=== PATIENT | male | born 1985 | race Caucasian/White ===

== ENCOUNTER → 2025-02-05 16:07 | Outpatient (BNVA) | payer MEDICAID, SELFPAY | PROVIDERS: PCP Family Medicine; Visit Provider Family Medicine | DX: K57.92 Diverticulitis of intestine, part unspecified, without perforation or abscess without bleeding (principal) | CPT/HCPCS: 80053; 85025 ==

== ENCOUNTER → 2025-03-11 13:49 | Outpatient (BNVA) | payer MEDICAID, SELFPAY | PROVIDERS: PCP Family Medicine; Visit Provider Family Medicine | DX: E87.5 Hyperkalemia (principal) | CPT/HCPCS: 80048 ==

== ENCOUNTER 2025-05-22 13:51 | Outpatient (CLI) | payer MEDICAID, SELFPAY | END 2025-05-22 13:52 | disposition home or self-care (01) | LOC: SLEEP 13:52 | PROVIDERS: PCP Family Medicine; Visit Provider Internal Medicine Pulmonary Disease | DX: G47.10 Hypersomnia, unspecified (principal) | CPT/HCPCS: G0399 ==

== ENCOUNTER 2025-06-19 10:04 | Emergency (ER) | payer SELFPAY ==
[2025-06-19 10:15] VITALS: BP 121/81; PULSE 90; RESP 20; O2SAT 94
--- NOTE | 2025-06-19 10:16 | CT_ITS ---
WS: [id number] CT ABDOMEN PELVIS TECHNIQUE: Contrast-enhanced CT of the abdomen and pelvis with coronal and sagittal reformatted images. CLINICAL INFORMATION: abd ain COMPARISON: None. DLP: 889.[address] scans at [facility] use at least one of these dose optimization techniques: automated exposure control; mA and/or kV adjustment per patient size (includes targeted exams where dose is matched to clinical indication); or iterative reconstruction. FINDINGS: Mild thickening of the sigmoid colon with slight inflammatory stranding in the mid pelvis suspicious for mild acute diverticulitis. No drainable abscess or fluid collection. Fatty liver. Lung bases are well aerated. Normal portal vein and splenic vein. Normal spleen. Normal gallbladder. Normal GE junction. Normal pancreatic parenchymal enhancement. Celiac and SMA are patent. Adrenal glands are normal. Normal renal parenchymal enhancement. No hydronephrosis. Normal caliber abdominal aorta. Celiac and SMA are patent. Small fat-containing umbilical hernia. Appendix appears retrocecal but normal in appearance. No evidence of acute appendicitis. CT/CT abdomen pelvis w con* [id number] IMPRESSION: 1. Normal appendix in the RIGHT lower quadrant. Appendix is retrocecal. 2. No hydronephrosis in either kidney. 3. Mild thickening of the sigmoid colon with slight stranding inflammatory str anding in the mid pelvis suspicious for mild acute diverticulitis. No drainable abscess or fluid collection. 4. No other acute findings Notified Makayla Zazueta MD at 06/19/2025 11:33 AM.
[2025-06-19 10:18] VITALS: TEMP 36.8
[2025-06-19] MEDS: morphine 4 mg/mL SDV 1 mL IVP (10:29)
[2025-06-19 10:32] LABS: Hematocrit 46.4 % (37-53); Hemoglobin 15.70 g/dL (11.27-16.99); Mean Corpuscular HGB Conc 33.8 g/dL (30-55); Mean Corpuscular Hemoglobin 27.6 pg (27-33); Mean Corpuscular Volume 81.7 fl (82-101); Nucleated Red Blood Cells % 0 %; Platelet Count 211 10^3/cmm (157-399); Red Blood Count 5.68 10^6/uL (3.85-5.65); White Blood Count 6.54 10^3/uL (3.29-11.43)
[2025-06-19 10:57] LABS: Alanine Aminotransferase 32 U/L (0-41); Albumin Level 4.9 g/dL (3.5-5.2); Alkaline Phosphatase 109 U/L (40-130); Anion Gap 17.2 (5-19); Aspartate Amino Transferase 26 U/L (0-40); Blood Urea Nitrogen 16 mg/dL (6-20); Calcium 9.7 mg/dL (8.5-10.5); Carbon Dioxide 22 mmol/L (22-29); Chloride 103 mmol/L (98-107); Creatinine Clr Calc Pharmacy 111.0181; Globulin 2.8 g/dL (1.3-4.6); Glucose 99 mg/dL (65-115); Lipase 30 U/L (13-60); Osmolality Calculated 287 mOsm/kg (285-295); Potassium 4.2 mmol/L (3.5-5.1); Sodium 138 mmol/L (136-145); Total Protein 7.7 g/dL (6.6-8.7)
[2025-06-19] MEDS: iohexol 350 mg/mL 500 mL Btl (per mL) IV (10:59)
--- NOTE | 2025-06-19 11:20 | ED_ITS ---
HPI - Abdominal Pain 2 General: Chief Complaint: Abdominal Pain Stated Complaint: abd pain wrapping to back R side, light headed, Time Seen by Provider: 06/19/25 10:14 Source: patient Mode of arrival: ambulatory Limitations: no limitations History of Present Illness: 39-year-old male who states that he has been having right lower quadrant pain over the last 4 days is worsened today. States pain sharp in nature rates a 7- 10 has had some nausea denies any vomiting or fever. States has had a history of diverticulitis in the past and this feels similar. Related Data Previous Rx's ?Medication ?Instructions ?Recorded triamcinolone acetonide 0.1 % 1 applic topical BID pso riasis 02/05/25 topical cream rash #80 grams lisdexamfetamine 40 mg capsule 40 mg PO DAILY 30 days #30 caps 05/10/25 (Vyvanse) lisdexamfetamine 40 mg capsule 40 mg PO QAM 30 days #3 0 caps 05/10/25 (Vyvanse) lisdexamfetamine 40 mg capsule 40 mg PO QAM 30 days #3 0 caps 05/10/25 (Vyvanse) ciprofloxacin HCl 500 mg tablet 500 mg PO BID #14 tabs 06/19/25 (Cipro) hydrocodone 5 mg-acetaminophen 325 1 tab PO Q6H PRN pa in #14 tabs 06/19/25 mg tablet metronidazole 500 mg tablet 500 mg PO Q8H 7 days #21 t abs 06/19/25 ondansetron 4 mg disintegrating 4 mg PO Q6H PRN nausea and 06/19/25 tablet vomiting #14 tabs Allergies Allergy/AdvReac Type Severity Reaction Status Date / Time No Known Allergies Allergy Verified 05/10/25 07:47 Review of Systems 2 GI: Reports: abdominal pain PFSH ED 2 PFSH: Medical History Psoriasis Psoriasis annularis Psoriasis of scalp Eczema History of ADHD Undescended testicle Diverticulosis Mental health problem Depression Family History Father No problems noted. Mother Psoriasis Manic affective disorder with recurrent episode Melanoma Cancer Social History Smoking and tobacco/nicotine status: never used tobacco/nicotine Alcohol intake: current Alcohol intake frequency: 0-2 Drinks per Day Alcohol type: beer and hard liquor Substance/Drug Use: never Physical Exam 2 Const: COMMON NORMALS: no acute distress, patient oriented x3 and healthy appearing HENMT: COMMON NORMALS: normocephalic and atraumatic HEAD & SCALP: n ormocephalic and atraumatic Eye: COMMON NORMALS: conjunctivae normal CONJUNCTIVA: Yes conjunctivae normal Neck/C-Spine: COMMON NORMALS: full ROM and supple Chest: COMMONS NORMALS: normal inspection of the chest Resp: COMMON NORMALS: normal respiratory effort Cardio: COMMON NORMALS: regular rate, regular rhythm and No murmurs present (Cardio) RATE: regular rate RHYTHM: regular rhythm GI: COMMON NORMALS: Normal to inspection, nondistended, normoactive bowel sounds present, Soft to palpation and no masses PALPATION: Yes Soft to palpation and Yes Tenderness to palpation present (GI) Details: RLQ Extremity: COMMON NORMALS: normal to inspection and full ROM Neuro: COMMON NORMALS: patient oriented x3, moves all extremities and no focal motor deficits Psych: COMMON NORMALS: mental status grossly normal, Normal thought process present and cooperative THOUGHT PROCESS: Normal thought process present Skin: COMMON NORMALS: no rashes or lesions noted and no wounds GENERAL SKIN EXAM: no rashes or lesions noted Course 2 Vital Signs: Vital signs: Vital Signs Temperature 98.3 F 06/19/25 10:18 Pulse Rate 90 06/19/25 10:15 Respiratory Rate 20 H 06/19/25 10:15 Blood Pressure 121/81 06/19/25 10:15 Pulse Oximetry 94 06/19/25 10:15 MDM - Abdominal Pain Medical Decision Making Patient presents for abdominal pains going on for 4 days. Differential included appendicitis diverticulitis, small bowel obstruction, bowel perforation. CT was performed here and did not show any signs of appendicitis bowel obstruction or bowel observed. His abdominal exam at discharge is benign his pain has improved I did go over his blood work including his white count which showed no acute abnormalities. His CT did show diverticulitis. I went over all these findings with patient he is had no vomiting we will start him on Cipro, Flagyl, Francisco, and Zofran. He did receive morphine and Zofran and IV fluids here and felt much improved he is to follow-up with his PCP in 4 to 7 days and return to the ER if he has worsening symptoms he understands agrees to plan Medical Records I reviewed the patient's medical records. Lab Data I reviewed the patient's lab results. 06/19/25 10:20 06/19/25 10:20 Labs/Radiology: Radiology Impressions Abdomen/Pelvis CT 06/19/25 10:16 IMPRESSION: 1. Normal appendix in the RIGHT lower quadrant. Appendix is retrocecal. 2. No hydronephrosis in either kidney. 3. Mild thickening of the sigmoid colon with slight stranding inflammatory stranding in the mid pelvis suspicious for mild acute diverticulitis. No drainable abscess or fluid collection. 4. No other acute findings Notified Makayla Zazueta MD at 06/19/2025 11:33 AM. Laboratory Results WBC 6.54 10^3/uL (3.29-11.43) 06/19/25 10:20 RBC 5.68 10^6/uL (3.85-5.65) H 06/19/25 10:20 Hgb 15.70 g/dL (11.27-16.99) 06/19/25 10:20 Hct 46.4 % (37-53) 06/19/25 10:20 MCV 81.7 fl (82-101) L 06/19/25 10:20 MCH 27.6 pg (27-33) 06/19/25 10:20 MCHC 33.8 g/dL (30-55) 06/19/25 10:20 RDW 13.0 % (12.1-15.1) 06/19/25 10:20 Plt Count 211 10^3/cmm (157-399) 06/19/25 10:20 MPV 10.1 fL (7.4-10.4) 06/19/25 10:20 Neut % (Auto) 61.3 % 06/19/25 10:20 Lymph % (Auto) 31.0 % 06/19/25 10:20 Liberty % (Auto) 5.5 % 06/19/25 10:20 Eos % (Auto) 1.1 % 06/19/25 10:20 Baso % (Auto) 0.9 % 06/19/25 10:20 Neut # (Auto) 4.01 10^3/uL (1.8-7.7) 06/19/25 10:20 Lymph # (Auto) 2.0 10^3/uL (0.8-4.8) 06/19/25 10:20 Liberty # (Auto) 0.4 10^3/uL (0.2-0.9) 06/19/25 10:20 Eos # (Auto) 0.1 10^3/uL (0.0-0.8) 06/19/25 10:20 Baso # (Auto) 0.1 10^3/uL (0.0-0.1) 06/19/25 10:20 Nucleated RBC % (auto) 0 % 06/19/25 10:20 Nucleated RBCs # 0.0 /100WBC 06/19/25 10:20 Sodium 138 mmol/L (136-145) 06/19/25 10:20 Potassium 4.2 mmol/L (3.5-5.1) 06/19/25 10:20 Chloride 103 mmol/L (98-107) 06/19/25 10:20 Carbon Dioxide 22 mmol/L (22-29) 06/19/25 10:20 Anion Gap 17.2 (5-19) 06/19/25 10:20 BUN 16 mg/dL (6-20) 06/19/25 10:20 Creatinine 1.0 mg/dL (0.7-1.2) 06/19/25 10:20 GFR Calculation 83.2 mL/min (90-130) L 06/19/25 10:20 Glucose 99 mg/dL (65-115) 06/19/25 10:20 Calculated Osmolality 287 mOsm/kg (285-295) 06/19/25 10:20 Calcium 9.7 mg/dL (8.5-10.5) 06/19/25 10:20 Total Bilirubin 0.4 mg/dL (0.15-1.2) 06/19/25 10:20 AST 26 U/L (0-40) 06/19/25 10:20 ALT 32 U/L (0-41) 06/19/25 10:20 Alkaline Phosphatase 109 U/L (40-130) 06/19/25 10:20 Total Protein 7.7 g/dL (6.6-8.7) 06/19/25 10:20 Albumin 4.9 g/dL (3.5-5.2) 06/19/25 10:20 Globulin 2.8 g/dL (1.3-4.6) 06/19/25 10:20 Lipase 30 U/L (13-60) 06/19/25 10:20 All radiology interpretation(s) finalized by discharge Discharge Plan Discharge Patient Disposition: Home Clinical Impression: Diverticulitis Condition: Stable Prescriptions: New hydrocodone-acetaminophen 5-325 mg tablet 1 tab PO Q6H PRN (Reason: pain) Qty: 14 0RF metronidazole 500 mg tablet 500 mg PO Q8H 7 Days Qty: 21 0RF ciprofloxacin HCl [Cipro] 500 mg tablet 500 mg PO BID Qty: 14 0RF ondansetron 4 mg tablet,disintegrating 4 mg PO Q6H PRN (Reason: nausea and vomiting) Qty: 14 0RF No Action triamcinolone acetonide 0.1 % cream 1 applic topical BID Qty: 80 1RF lisdexamfetamine [Vyvanse] 40 mg capsule 40 mg PO QAM 30 Days Qty: 30 0RF Rx Instructions: Do not fill until 06/02/2025 lisdexamfetamine [Vyvanse] 40 mg capsule 40 mg PO DAILY 30 Days Qty: 30 0RF Rx Instructions: Do not fill until 07/31/2025 lisdexamfetamine [Vyvanse] 40 mg capsule 40 mg PO QAM 30 Days Qty: 30 0RF Rx Instructions: Do not fill until 07/01/2025 Discharge Orders: Discharge ED (Routine); Ordered 06/19/25 Ordered By: Makayla Zazueta Referrals: Anastasiia Izquierdo DO [Primary Care Provider, Family Practice] - 4-7 days Discharge Diet: Advance as tolerated Discharge Activity: Resume usual activity Patient Instructions: Diverticulitis (ED), Opioid Safety Stand Alone Forms: Work/School Release Print Language: Afghan Coding Level of Care Code ED 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
[2025-06-19 11:51] VITALS: PULSE 89; O2SAT 97
== END 2025-06-19 11:55 | disposition home or self-care (01) ==
PROVIDERS: Emergency Provider Emergency Medicine; PCP Family Medicine
DX: K57.32 Diverticulitis of large intestine without perforation or abscess without bleeding (principal)
CPT/HCPCS: 74177; 80053; 83690; 85025; 96374; 99285; J2270; J7030